=== PATIENT | female | born 1990 | race Caucasian/White ===

== ENCOUNTER 2017-01-17 20:33 | Emergency (ER) | payer OTHER ==
[2017-01-17 21:09] VITALS: BMI 40.2
[2017-01-17] MEDS ORDERED: ACETAMINOPHEN 500 MG TABLET (FP) PO ONE (21:10)
--- NOTE | 2017-01-17 21:10 | PDOC ---
Rapid Medical Evaluation Chief Complaint: Nausea/Vomiting Time Seen by Provider: 01/17/17 20:42 Medical Evaluation: 01/17/17 21:08 I performed a brief in-person evaluation of this patient. The patient presents with a chief complaint of: headache since yesterday with nausea, vomiting, blurred vision, dizziness and photophobia. Seen in emergency room yesterday states no medication prescribed. States headache returned today Pertinent physical exam findings: NAD unlabored breathing neuro: EOMI, steady gait, appears photophobic I have ordered the following: analgesia The patient will proceed to the Ed for further evaluation Discharge Disposition - Referrals Referrals: STAFF,NOT ON [Primary Care Provider] - - Patient Instructions - Post Discharge Activity
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
[2017-01-17] MEDS ORDERED: MAG HYDROX/AL HYDROX/SIMETH 30 ML UNIT-DOSE CUP PO ONE (21:36)
[2017-01-17] MEDS ORDERED: ONDANSETRON 4 MG/2 ML VIAL IVPUSH ONE (21:38)
[2017-01-17 21:57] LABS: BASOPHIL 0.2 % (0-2.0); EOSINOPHIL 0.5 % (0-4.5); MCH 29.4 pg (25.7-33.7); MEAN CELL VOLUME 86.5 fl (80-96); MEAN PLT VOLUME 7.8 fl (7.5-11.1); NEUTROPHILS 72.8 % (42.8-82.8); PLATELET COUNT 230 K/MM3 (134-434); RDW 13.7 % (11.6-15.6); WHITE BLOOD COUNT 6.5 K/mm3 (4.0-10.0)
[2017-01-17] MEDS ORDERED: ACETAMINOPHEN 325 MG TABLET (FP) ONE (21:59)
[2017-01-17] MEDS ORDERED: ONDANSETRON 4 MG/2 ML VIAL ONE (22:00)
[2017-01-17] MEDS ORDERED: MAG HYDROX/AL HYDROX/SIMETH 30 ML UNIT-DOSE CUP ONE (22:00)
[2017-01-17] MEDS ORDERED: KETOROLAC TROMETHAMINE 30 MG/1 ML VIAL IVPUSH ONE (22:43)
[2017-01-17 22:47] LABS: ALBUMIN 3.7 g/dl (3.4-5.0); ALK PHOS 81 U/L (45-117); ANION GAP 8 (8-16); BILIRUBIN,TOTAL 0.3 mg/dL (0.2-1.0); CALCIUM 8.7 mg/dL (8.5-10.1); CO2 28 mmol/L (21-32); CREATININE 0.8 mg/dL (0.55-1.02); GLUCOSE,RANDOM 97 mg/dL (74-106); SGOT/AST 20 U/L (15-37); SGPT/ALT 19 U/L (12-78); TOT PROT 7.3 g/dl (6.4-8.2)
[2017-01-17] MEDS ORDERED: METOCLOPRAMIDE HCL INJECTION 10 MG/2 ML VIAL IVPUSH ONE (22:52)
[2017-01-17] MEDS ORDERED: MAGNESIUM SULF 50% (8.12 MEQ/2 ML-1 GM VIAL) IVPB ONE (22:52)
[2017-01-17] MEDS ORDERED: SODIUM CHLORIDE 0.9% 500 ML INFUS.BAG IV ONE (23:18)
[2017-01-17] MEDS ORDERED: MAGNESIUM SULF 50% (8.12 MEQ/2 ML-1 GM VIAL) ONE (23:32)
[2017-01-17] MEDS ORDERED: METOCLOPRAMIDE HCL INJECTION 10 MG/2 ML VIAL ONE (23:32)
--- NOTE | 2017-01-18 00:21 | PDOC ---
*Physical Exam - Vital Signs Last Vital Signs Temp Pulse Resp BP Pulse Ox 98.9 F 119 H 20 114/79 99 01/17/17 21:06 01/17/17 21:06 01/17/17 21:06 01/17/17 21:06 01/17/17 21:06 - Physical Exam General Appearance: Yes: Nourished, Appropriately Dressed HEENT: positive: Normal ENT Inspection Neck: positive: Supple Respiratory/Chest: positive: Lungs Clear, Normal Breath Sounds Cardiovascular: positive: Regular Rhythm, Regular Rate, S1, S2 Gastrointestinal/Abdominal: positive: Normal Bowel Sounds, Soft. 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 (grossly intact, but not formally tested), Fully Oriented, Alert ED Treatment Course - LABORATORY CBC & Chemistry Diagram: 01/17/17 21:52 01/17/17 21:52 - ADDITIONAL ORDERS Additional order review: Laboratory Results 01/17/17 01/17/17 22:05 21:52 Sodium 140 Potassium 4.2 Chloride 104 Carbon Dioxide 28 Anion Gap 8 BUN 10 Creatinine 0.8 Creat Clearance w eGFR > 60 Random Glucose 97 Calcium 8.7 Total Bilirubin 0.3 AST 20 ALT 19 Alkaline Phosphatase 81 Total Protein 7.3 Albumin 3.7 Lipase 148 Urine HCG, Qual Negative 01/17/17 21:52 RBC 4.82 MCV 86.5 MCHC 34.0 RDW 13.7 MPV 7.8 Neutrophils % 72.8 Lymphocytes % 19.4 Monocytes % 7.1 Eosinophils % 0.5 Basophils % 0.2 - RADIOLOGY Radiology Studies Ordered: 01/18/17 04:[address]: INDICATION: Clinical suspicion for intracranial hemorrhage. TECHNIQUE: Axial noncontrast head CT with coronal and sagittal reformations. COMPARISON: None available. FINDINGS: There is no acute intracranial hemorrhage or focal extra-axial collection. The ventricles, sulci and cisterns are appropriate in size for age. There is no mass effect, midline shift or hydrocephalus. There is no compelling evidence of acute, territorial transcortical infarct at this time. MRI is much more sensitive in detecting acute infarction. The calvarium is intact. No fluid levels in the partially visualized ethmoid, frontal and sphenoid sinuses. The mastoid air cells are clear. IMPRESSION: No acute intracranial hemorrhage, mass effects or hydrocephalus. - Medications Given in the ED: ED Medications Discontinued Medications Generic Name Dose Route Start Last Admin Trade Name Christine PRN Reason Stop Dose Admin Acetaminophen 1,000 mg 01/17/17 21:10 01/17/17 22:07 Tylenol - PO 01/17/17 21:11 1,000 mg ONCE ONE Administration Al Hydroxide/Mg Hydroxide 30 ml 01/17/17 21:36 01/17/17 22:07 Mylanta Oral Suspension - PO 01/17/17 21:37 30 ml ONCE ONE Administration Ketorolac Tromethamine 30 mg 01/17/17 22:43 01/17/17 22:48 Toradol Injection - IVPUSH 01/17/17 22:44 Not Given ONCE ONE Magnesium Sulfate 2 gm 01/17/17 22:52 01/17/17 23:39 Magnesium Sulfate IVPB 01/17/17 22:53 2 gm ONCE ONE Administration Metoclopramide HCl 10 mg 01/17/17 22:52 01/17/17 23:39 Reglan Injection - IVPUSH 01/17/17 22:53 10 mg ONCE ONE Administration Ondansetron HCl 4 mg 01/17/17 21:38 01/17/17 22:07 Zofran Injection IVPUSH 01/17/17 21:39 4 mg ONCE ONE Administration Sodium Chloride 1,000 ml 01/17/17 23:18 01/17/17 23:39 Normal Saline - IV 01/17/17 23:19 1,000 ml ONCE ONE Administration Medical Decision Making - Medical Decision Making 01/18/17 12:29 Received sign out from resident Dr. Manuel. 01/18/17 03:46 Patient received 2L NS. Reports HERNDON improved. No further nausea or vomiting. Will PO challenge and reassess. Vital Signs Temperature 97.9 F 01/18/17 01:43 Pulse Rate 88 01/18/17 01:43 Respiratory Rate 20 01/18/17 01:43 Blood Pressure 121/67 01/18/17 01:43 O2 Sat by Pulse Oximetry (%) 99 01/18/17 01:43 01/18/17 04:41 Patient tolerated PO intake. No further nausea or vomiting. HERNDON continues to improve. Patient is requesting to go home. Her vital signs are stable. No acute pathology seen on CT and labs wnl. Although differential is broad, suspect HERNDON etiology is 2/2 hydration from nausea/vomiting. All physical exam findings, ancillary test results and final diagnoses were discussed with the patient. The patient will call their primary care physician within 24 hours to arrange follow -up and will return to the Emergency Department with any new, persistent or worsening symptoms. 01/18/17 04:47 *DC/Admit/Observation/Transfer Diagnosis at time of Disposition: Headache - Discharge Dispostion Disposition: HOME Condition at time of disposition: Stable Admit: No - Referrals Referrals: STAFF,NOT ON [Primary Care Provider] - - Patient Instructions Printed Discharge Instructions: DI for Nausea -- Adult, DI for Vomiting -- Adult, DI for Headache Additional Instructions: Please follow-up with your primary care physician within 1 week. Please return to the Emergency Department if you have new, worsening, or concerning symptoms. - Post Discharge Activity
[2017-01-18] MEDS ORDERED: SODIUM CHLORIDE 0.9% 500 ML INFUS.BAG IV ONE (01:31)
[2017-01-18 01:44] VITALS: BP 121/67; PULSE 88; TEMP 97.9
--- NOTE | 2017-01-18 04:12 | PDOC ---
Attending Attestation - Resident Resident Name: Xavier Manuel - ED Attending Attestation I have performed the following: I have examined & evaluated the patient, The case was reviewed & discussed with the resident, I agree w/resident's findings & plan, Exceptions are as noted - HPI HPI: 01/18/17 04:12 26yo F history of gastric sleeve 2 years ago presents to the emergency department with complaints of headache associated with nausea and vomiting. Patient reports that the headache started suddenly yesterday but has gradually gotten worse. The headache is located in the frontal area and is dull. She presented to [facility] emergency department yesterday where she received medications and states the headache improved but then returned today gradually. She reports similar headaches in the past but they usually resolve after a few hours. States, however, that this is not the worse headache of her life. She also reports epigastric abdominal cramping associated with multiple episodes of nonbloody and nonbilious emesis. She states that she has been unable to keep food or drink down for the last 2 days. Denies any diarrhea. Had a normal bowel movement yesterday. Reports a subjective fever in the morning but did not check her temperature. Denies neck stiffness or focal weakness/numbness. Reports photophobia. Denies rashes. Denies urinary or vaginal symptoms. Has not tried any treatments. - Physicial Exam PE: 01/18/17 04:54 GENERAL: Awake, alert, and fully oriented, in no acute distress HEAD: No signs of trauma EYES: PERRLA, EOMI, sclera anicteric, conjunctiva clear. OU 20/25 vision ENT: Auricles normal inspection, hearing grossly normal, nares patent, oropharynx clear without exudates. dry MM NECK: Normal ROM, supple, no lymphadenopathy, JVD, or masses LUNGS: Breath sounds equal, clear to auscultation bilaterally. No wheezes, and no crackles HEART: tachycardic 118 but regular, normal S1 and S2, no murmurs, rubs or gallops ABDOMEN: Soft, nontender, normoactive bowel sounds. No guarding, no rebound. No masses EXTREMITIES: Normal range of motion, no edema. No clubbing or cyanosis. No cords, erythema, or tenderness NEUROLOGICAL: Normal speech, cranial nerves intact, negative pronator drift, 5/ 5 strength in all 4 extremities, normal sensation to light touch in all 4 extremities, normal cerebellar exam, normal gait, normal reflexes and tone SKIN: Warm, Dry, normal turgor, no rashes or lesions noted. - Medical Decision Making 01/18/17 00:55 26-year-old female presents with headache associated with epigastric cramping and nausea and vomiting. Vitals remarkable for tachycardia to 119. Exam with dry mucous membranes. With regards to headache, the differential is wide. The most likely cause of the patient's headache is dehydration due to persistent nausea and vomiting since the headache is frontal, gradual in onset and the patient appears dry. The patient does state that the headache occurred suddenly howeverm and thus we must consider subarachnoid hemorrhage as a possible etiology of the headache although this is less likely in the absence of stiff neck, thunderclap quality. The patient also has a normal neurologic exam. With regards to the epigastric cramping, nausea, and vomiting this is likely due to a viral syndrome. The patient does not have any tenderness in her abdominal exam making a complication from the gastric sleeve less likely. She also had a normal bowel movement yesterday. Will check blood work, and rehydrate the patient, and treat her headache. Will also obtain a CT scan of her head as a part of her headache evaluation and consider possible LP if her headache does not improve with medication and rehydration. 01/18/17 03:01 CT head is unremarkable. Labs are unremarkable. Patient reports that her headache is much improved after 2 L of fluids and medication. Headache was likely due to dehydration. I discussed with the patient that due to the sudden onset of her headache yesterday, I did have a small concern for subarachnoid hemorrhage. I explained to her that a lumbar puncture would be the only way to rule this outM but since she was feeling better with fluids it was less likely that SAH was the cause of her headache. I offered the patient a lumbar puncture to make sure that this was not hemorrhage, but she declines as she states she feels much better. Abdominal exam continues to be benign. Will PO challenge the patient with fluids, and if she tolerates will discharge home. 01/18/17 05:03 Patient is tolerating PO and feels much better. She requests discharge home. I discussed the physical exam findings, ancillary test results and final diagnoses with the patient. I answered all of the patient's questions. The patient was satisfied with the care received and felt comfortable with the discharge plan and treatment plan. The patient will call their primary care physician within 24 hours to arrange follow-up and will return to the Emergency Department with any new, persistent or worsening symptoms.
== END 2017-01-18 05:04 | disposition home or self-care (01) ==
LOC: JER 20:33
PROC: 3E0333Z Introduction of Anti-inflammatory into Peripheral Vein, Percutaneous Approach (ICD-10-PCS; principal; 2017-01-17)
PROC: 3E033GC Introduction of Other Therapeutic Substance into Peripheral Vein, Percutaneous Approach (ICD-10-PCS; 2017-01-17)
PROC: 3E033GC Introduction of Other Therapeutic Substance into Peripheral Vein, Percutaneous Approach (ICD-10-PCS; 2017-01-17)
PROC: 3E033GC Introduction of Other Therapeutic Substance into Peripheral Vein, Percutaneous Approach (ICD-10-PCS; 2017-01-17)
DX: R51 Headache (principal)
CPT/HCPCS: 36415; 70450-TC; 80053; 83690; 84703; 85025; 99283-25